=== PATIENT | male | born 1970 | race Two or more races ===

== ENCOUNTER 2021-10-31 11:17 | Outpatient (CLI) | payer OTHER | END 2021-10-31 11:25 | disposition home or self-care (01) | LOC: SONOGRAMA 11:17 | PROVIDERS: ATTEND Radiology Diagnostic Radiology | DX: N40.1 Benign prostatic hyperplasia with lower urinary tract symptoms (principal) ==

== ENCOUNTER 2024-08-16 11:54 | Outpatient (CLI) | payer OTHER | END 2024-08-16 12:03 | disposition home or self-care (01) | LOC: RAD 11:54 | DX: M54.50 Low back pain, unspecified (principal) ==

== ENCOUNTER 2025-03-15 11:17 | Outpatient (CLI) | payer OTHER | END 2025-03-15 11:24 | disposition home or self-care (01) | LOC: SONOGRAMA 11:17 | PROVIDERS: ATTEND General Practice | DX: R10.9 Unspecified abdominal pain (principal); R10.2 Pelvic and perineal pain; U07.1 COVID-19; Z00.01 Encounter for general adult medical examination with abnormal findings; I11.9 Hypertensive heart disease without heart failure ==